=== PATIENT | female | born 1950 | race Caucasian/White ===

== ENCOUNTER 2018-12-13 14:03 | Inpatient (IN) | payer OTHER ==
[~2018-12-13] VITALS: Ht 157.5 cm; Wt 69.4 kg
[2019-01-01] MEDS ORDERED: FIORICET PO (14:39)
[2019-01-01] MEDS ORDERED: [UNRECOGNIZED DRUG - OTHER] PO (14:39)
[2019-01-01] MEDS ORDERED: COZAAR50 MG PO (14:40)
[2019-01-01] MEDS ORDERED: RANITIDINE HCL300 M1 PO (14:40)
[2019-01-01] MEDS ORDERED: [UNRECOGNIZED DRUG - OTHER] PO (14:41)
[2019-01-08] MEDS ORDERED: PRAVASTATIN SOD20 MG PO (08:13)
[2019-01-08] MEDS ORDERED: BUTALB-ASPIRIN1 EACH PO (08:15)
[2019-01-08] MEDS ORDERED: SULINDAC150 MG (08:17)
== END 2019-01-11 16:55 | disposition home or self-care (01) | DRG 330 ==
LOC: SURH 01-08 06:30 → O/R 01-08 06:30 → SURG 01-08 07:00 → SURH 01-08 13:07
PROVIDERS: ADMIT Colon & Rectal Surgery
PROC: 0DJD8ZZ Inspection of Lower Intestinal Tract, Via Natural or Artificial Opening Endoscopic (ICD-10-PCS; 2019-01-08)
PROC: 0DTN4ZZ Resection of Sigmoid Colon, Percutaneous Endoscopic Approach (ICD-10-PCS; principal; 2019-01-08 07:00)
DX: K57.20 Diverticulitis of large intestine with perforation and abscess without bleeding (principal); J95.89 Other postprocedural complications and disorders of respiratory system, not elsewhere classified; J98.11 Atelectasis; K66.0 Peritoneal adhesions (postprocedural) (postinfection)